=== PATIENT | female | born 1980 | race Caucasian/White ===

== ENCOUNTER 2023-11-08 02:29 | Emergency (ER) | payer SELFPAY ==
[~2023-11-08] VITALS: Ht 169 cm; Wt 90.9 kg
[~2023-11-08 02:29] MED LIST: ANUSOL-HC SUPPO25 MG RC; PEPCID 20MG TAB20 MG PO; PREDNISONE20 MG PO; VASOTEC20 MG PO
[2023-11-08 02:34] VITALS: TEMP 98.7
[2023-11-08] MEDS ORDERED: Ketorolac 15 MG/ML VIAL IV ONE (02:45)
[2023-11-08 03:04] LABS: BASO % 0.5 % (0.0-2.0); EOS # 0.1 K/mm3 (0.0-0.7); EOS % 1.7 % (0.0-4.0); GRAN # 2.9 K/mm3 (1.4-6.5); GRAN % 47.3 % (42.2-75.2); HEMATOCRIT 38.2 % (37.0-47.0); HEMOGLOBIN 12.4 g/dl (12.5-16.0); LYMPH # 2.5 K/mm3 (1.2-3.4); LYMPH % 41.6 % (20.0-51.0); MEAN CELL VOLUME 81 fl (80.0-100.0); MEAN CORPUSCULAR HEMOGLOBIN 26 pg (27-31); MEAN CORPUSCULAR HGB CONC 33 g/dl (33.0-37.0); MEAN PLATELET VOLUME 10.2 fl (7.4-10.4); MONO # 0.5 K/mm3 (0.1-0.6); MONO % 8.7 % (1.7-9.3); PLATELET COUNT 232 K/mm3 (130-400); REDCELL DISTRIBUTION WIDTH-CV 13.5 % (11.5-14.5)
[2023-11-08 03:15] LABS: INR 1.1 (0.8-3.0); PROTHROMBIN TIME 11.5 SECONDS (9.7-12.8)
[2023-11-08 03:17] LABS: ALANINE AMINOTRANSFERASE 17 U/L (0-55); ALKALINE PHOSPHATASE 60 U/L (40-150); ANION GAP 11 mmol/L (7-16); AST,SGOT 15 U/L (5-34); BILIRUBIN,TOTAL 0.3 mg/dL (0.2-1.2); BLOOD UREA NITROGEN 14 mg/dL (7-19); CALCIUM 9.3 mg/dL (8.4-10.2); CHLORIDE 104 mEq/L (98-107); CREATININE, serum 0.74 mg/dL (0.57-1.11); GLUCOSE 99 mg/dL (70-99); PARTIAL THROMBOPLASTIN TIME 32.2 SECONDS (26.0-37.0); POTASSIUM 3.4 mEq/L (3.5-4.5); SODIUM 140 mEq/L (136-145); TOTAL PROTEIN 7.4 g/dl (6.2-8.1)
[2023-11-08 03:28] LABS: TROPONIN-I < 0.010 ng/mL (0.00-0.033)
[2023-11-08] MEDS ORDERED: Meclizine 25 MG TAB PO ONE (03:45)
[2023-11-08 04:51] VITALS: BP 145/88; PULSE 78
== END 2023-11-08 04:55 | disposition home or self-care (01) ==
LOC: COL.ER 02:29
PROVIDERS: Emergency Medicine
DX: R07.89 Other chest pain (principal)
CPT/HCPCS: J1885

== ENCOUNTER 2023-11-11 23:54 | Emergency (ER) | payer SELFPAY ==
[~2023-11-11] VITALS: Ht 175.3 cm; Wt 90.9 kg
[2023-11-12 00:03] VITALS: TEMP 97.4
[2023-11-12] MEDS ORDERED: diphenhydrAMINE 50 MG/ML 1 ML VIAL IV ONE (01:15)
[2023-11-12] MEDS ORDERED: Ketorolac 30 MG/ML VIAL IV ONE (01:15)
[2023-11-12] MEDS ORDERED: NS 1,000 ML IV ONE (01:15)
[2023-11-12 02:10] LABS: BASO % 0.6 % (0.0-2.0); EOS # 0.1 K/mm3 (0.0-0.7); EOS % 1.4 % (0.0-4.0); GRAN # 3.4 K/mm3 (1.4-6.5); HEMATOCRIT 38.2 % (37.0-47.0); HEMOGLOBIN 12.7 g/dl (12.5-16.0); LYMPH # 2.3 K/mm3 (1.2-3.4); LYMPH % 36.4 % (20.0-51.0); MEAN CELL VOLUME 81 fl (80.0-100.0); MEAN CORPUSCULAR HEMOGLOBIN 27 pg (27-31); MEAN CORPUSCULAR HGB CONC 33 g/dl (33.0-37.0); MEAN PLATELET VOLUME 10.1 fl (7.4-10.4); MONO # 0.5 K/mm3 (0.1-0.6); MONO % 7.4 % (1.7-9.3); PLATELET COUNT 236 K/mm3 (130-400); RED BLOOD COUNT 4.72 M/mm3 (4.10-5.30); REDCELL DISTRIBUTION WIDTH-CV 13.6 % (11.5-14.5)
[2023-11-12 02:19] LABS: PH 7.5 (5.0-8.5); URINE APPEARANCE CLEAR (CLEAR/HAZY); URINE BLOOD 3+ (NEGATIVE); URINE COLOR YELLOW (YELLOW); URINE GLUCOSE NEGATIVE (NEGATIVE); URINE KETONE NEGATIVE (NEGATIVE); URINE NITRATE NEGATIVE (NEGATIVE); URINE PROTEIN(semi-quant) NEGATIVE (NEGATIVE); URINE UROBILINOGEN 0.2 E.U/dL (0.2-1.0)
[2023-11-12 02:28] LABS: COLLECTION METHOD CLEAN CATCH
[2023-11-12 02:38] LABS: ALBUMIN 4.1 g/dL (3.5-5.0); BILIRUBIN,TOTAL 0.4 mg/dL (0.2-1.2); C-REACTIVE PROTEIN 0.3 mg/dL (0.00-0.50); CREATININE, serum 0.77 mg/dL (0.57-1.11); POTASSIUM 3.3 mEq/L (3.5-4.5)
[2023-11-12] MEDS ORDERED: Iohexol 350 - 100 ML VIAL IV ONE (02:55)
[2023-11-12] MEDS ORDERED: NS 64 ML IV SCH (02:55)
[2023-11-12] MEDS ORDERED: ZOFRAN ODT4 MG PO (04:58)
[2023-11-12 05:03] VITALS: BP 127/90; PULSE 61
== END 2023-11-12 05:03 | disposition home or self-care (01) ==
LOC: COL.ER 23:54 → EDBD 23:56 → COL.ER 23:56
PROVIDERS: Nurse Practitioner
DX: R51.9 Headache, unspecified (principal); R07.9 Chest pain, unspecified
CPT/HCPCS: J1200; J1885; J2765; J7030; Q9967